=== PATIENT | female | born 1975 | race Caucasian/White ===

== ENCOUNTER → 2017-02-06 | Outpatient (CLI) | payer OTHER ==
--- NOTE | 2017-02-06 14:33 | REPMRS ---
Patient History The patient states she had a clinical breast exam in 01/15 Baseline Mammogram No known family history of cancer. Taking hormonal contraceptives for 7 years. Digital Woman Screen Mammo: February 06, 2017 - Exam #: [id number] Bilateral CC and MLO view(s) were taken. Technologist: Vinita Solis, Technologist FINDINGS: There are scattered fibroglandular densities. There is no evidence of cancer on this mammogram. ASSESSMENT: BI-RADS/ACR category 2 mammogram. Benign finding(s). Recommendation Routine screening mammogram of both breasts in 1 year (for women over age 40). This mammogram was interpreted with the aid of an FDA-approved computer-aided dectection system. Electronically Signed By: Gareth Carranza MD 02/06/17 [id number]
== END ==
LOC: M WHC 13:14
PROVIDERS: ATTEND Nurse Practitioner
DX: Z12.31 Encounter for screening mammogram for malignant neoplasm of breast (principal)

== ENCOUNTER → 2018-02-11 | Outpatient (CLI) | payer OTHER, MEDICAID ==
[2018-02-11 08:00] LABS: HEMATOCRIT 44.6 % (36.0-47.0); HEMOGLOBIN 15.3 g/dl (12.0-15.5); MEAN CORPUSCULAR HEMOGLOBIN 31.4 pg (27.0-33.0); MEAN CORPUSCULAR HGB CONC 34.3 g/dl (32.0-36.5); MEAN CORPUSCULAR VOLUME 91.4 fl (80.0-96.0); PLATELET COUNT, AUTOMATED 171 10^3/uL (150-450); RED BLOOD COUNT 4.88 10^6/uL (4.00-5.40); WHITE BLOOD COUNT 8.1 10^3/uL (4.0-10.0)
[2018-02-11 08:29] LABS: ALBUMIN 3.5 GM/DL (3.2-5.2); ALBUMIN/GLOBULIN RATIO 0.97 (1.00-1.93); ALKALINE PHOSPHATASE 88 U/L (45-117); ALT/SGPT 29 U/L (12-78); ANION GAP 7 MEQ/L (8-16); AST/SGOT 19 U/L (7-37); BILIRUBIN,TOTAL 0.3 MG/DL (0.2-1.0); BLOOD UREA NITROGEN 20 MG/DL (7-18); CARBON DIOXIDE LEVEL 24 MEQ/L (21-32); CHLORIDE LEVEL 114 MEQ/L (98-107); CHOLESTEROL LEVEL 142 MG/DL (<200); CHOLESTEROL RISK RATIO 3.736 (<5); CREATININE FOR GFR 0.98 MG/DL (0.55-1.30); GLOMERULAR FILTRATION RATE > 60.0 (>58); GLUCOSE, FASTING 110 MG/DL (70-100); HDL CHOLESTEROL 38 MG/DL (>40); LDL CHOLESTEROL 78.4 MG/DL (<100); NON-HDL-C 104 MG/DL; POTASSIUM SERUM 3.5 MEQ/L (3.5-5.1); SODIUM LEVEL 145 MEQ/L (136-145); TOTAL PROTEIN 7.1 GM/DL (6.4-8.2); TRIGLYCERIDES LEVEL 128 MG/DL (<150)
[2018-02-11 09:23] LABS: ESTIMATED AVERAGE GLUCOSE 114 MG/DL (60-110); HEMOGLOBIN A1c 5.6 %
[2018-02-11 09:25] LABS: TOTAL 25(OH) VITAMIN D 35.7 NG/ML (30.0-100.0)
== END ==
LOC: M LAB 07:06
DX: Z00.00 Encounter for general adult medical examination without abnormal findings (principal); E55.9 Vitamin D deficiency, unspecified; D68.59 Other primary thrombophilia
CPT/HCPCS: 80053

== ENCOUNTER 2019-03-22 16:58 | Emergency (ER) | payer BC, OTHER ==
[~2019-03-22] VITALS: Ht 160 cm; Wt 71.8 kg
[2019-03-22] MEDS ORDERED: VITA500045 OR (17:20)
[2019-03-22] MEDS ORDERED: TOPI200T7 OR (17:20)
[2019-03-22] MEDS ORDERED: LISI20TA3 OR (17:20)
[2019-03-22] MEDS ORDERED: HYDR200T3 OR (17:20)
[2019-03-22] MEDS ORDERED: WARF-22 OR (17:20)
[2019-03-22] MEDS ORDERED: WARF-21 OR (17:20)
[2019-03-22 17:40] LABS: BASO # 0.1 10^3/uL (0.0-0.2); BASO % 0.5 % (0.0-1.0); EOS # 0.3 10^3/uL (0.0-0.50); EOS % 1.9 % (0.0-3.0); HEMATOCRIT 44.2 % (36.0-47.0); HEMOGLOBIN 14.6 g/dl (12.0-15.5); LYMPH # 1.6 10^3/uL (1.5-4.5); MEAN CORPUSCULAR HEMOGLOBIN 31.3 pg (27.0-33.0); MEAN CORPUSCULAR VOLUME 94.8 fl (80.0-96.0); MONO # 0.7 10^3/uL (0.0-0.8); NEUTROPHILS # 10.8 10^3/uL (1.8-7.7); NEUTROPHILS % 80.3 % (36.0-66.0); PLATELET COUNT, AUTOMATED 157 10^3/uL (150-450); RED BLOOD COUNT 4.66 10^6/uL (4.00-5.40); WHITE BLOOD COUNT 13.4 10^3/uL (4.0-10.0)
[2019-03-22 18:09] LABS: ALBUMIN 3.2 GM/DL (3.2-5.2); ALT/SGPT 23 U/L (12-78); BILIRUBIN,DIRECT < 0.1 MG/DL (0.0-0.2); BILIRUBIN,TOTAL 0.2 MG/DL (0.2-1.0); BLOOD UREA NITROGEN 20 MG/DL (7-18); C REACTIVE PROTEIN QUANTITATIV 2.31 MG/DL (0.00-0.30); CALCIUM LEVEL 8.2 MG/DL (8.5-10.1); CARBON DIOXIDE LEVEL 20 MEQ/L (21-32); CHLORIDE LEVEL 113 MEQ/L (98-107); CREATININE FOR GFR 1.06 MG/DL (0.55-1.30); GLUCOSE, FASTING 98 MG/DL (70-100); POTASSIUM SERUM 3.3 MEQ/L (3.5-5.1); SODIUM LEVEL 143 MEQ/L (136-145); TOTAL PROTEIN 6.7 GM/DL (6.4-8.2)
[2019-03-22] MEDS ORDERED: DOXY100C PO (18:43)
[2019-03-22 18:55] VITALS: BP 109/64
== END 2019-03-22 18:59 | disposition home or self-care (01) ==
LOC: M ED 16:58
DX: L02.31 Cutaneous abscess of buttock (principal); L03.317 Cellulitis of buttock; I10 Essential (primary) hypertension; M32.9 Systemic lupus erythematosus, unspecified; D68.59 Other primary thrombophilia; Z91.030 Bee allergy status; Z79.899 Other long term (current) drug therapy; Z79.3 Long term (current) use of hormonal contraceptives; Z79.82 Long term (current) use of aspirin; Z79.01 Long term (current) use of anticoagulants; F17.210 Nicotine dependence, cigarettes, uncomplicated

== ENCOUNTER → 2019-03-25 | Outpatient (REF) | payer BC ==
[~2019-03-25] MED LIST: DOXY100C PO; HYDR200T3 OR; LISI20TA3 OR; TOPI200T7 OR; VITA500045 OR; WARF-21 OR; WARF-22 OR
[2019-03-25 12:28] LABS: BASO # 0.1 10^3/uL (0.0-0.2); BASO % 0.8 % (0.0-1.0); EOS # 0.2 10^3/uL (0.0-0.50); EOS % 3.3 % (0.0-3.0); HEMATOCRIT 43.8 % (36.0-47.0); HEMOGLOBIN 14.8 g/dl (12.0-15.5); LYMPH # 1.5 10^3/uL (1.5-4.5); LYMPH % 23.1 % (24.0-44.0); MEAN CORPUSCULAR HEMOGLOBIN 31.8 pg (27.0-33.0); MEAN CORPUSCULAR HGB CONC 33.8 g/dl (32.0-36.5); MONO # 0.4 10^3/uL (0.0-0.8); MONO % 5.6 % (0.0-5.0); NEUTROPHILS # 4.4 10^3/uL (1.8-7.7); NEUTROPHILS % 66.7 % (36.0-66.0); PLATELET COUNT, AUTOMATED 179 10^3/uL (150-450); RED BLOOD COUNT 4.66 10^6/uL (4.00-5.40); WHITE BLOOD COUNT 6.6 10^3/uL (4.0-10.0)
[2019-03-25 12:49] LABS: ALBUMIN 3.5 GM/DL (3.2-5.2); ALT/SGPT 23 U/L (12-78); BILIRUBIN,TOTAL 0.3 MG/DL (0.2-1.0); BLOOD UREA NITROGEN 14 MG/DL (7-18); C REACTIVE PROTEIN QUANTITATIV 2.29 MG/DL (0.00-0.30); CALCIUM LEVEL 8.9 MG/DL (8.5-10.1); CARBON DIOXIDE LEVEL 24 MEQ/L (21-32); CHLORIDE LEVEL 115 MEQ/L (98-107); GLOMERULAR FILTRATION RATE > 60.0 (>58); GLUCOSE, FASTING 98 MG/DL (70-100); POTASSIUM SERUM 3.6 MEQ/L (3.5-5.1); SODIUM LEVEL 143 MEQ/L (136-145); TOTAL PROTEIN 7.1 GM/DL (6.4-8.2)
[2019-03-25 12:55] LABS: ERYTHROCYTE SEDIMENTATION RATE 27 mm/hr (0-20)
== END ==
LOC: M SFHCPLAZ 09:51
PROVIDERS: ATTEND Physician Assistant Medical
DX: L02.91 Cutaneous abscess, unspecified (principal); E87.6 Hypokalemia

== ENCOUNTER → 2019-05-13 | Outpatient (CLI) | payer BC ==
[~2019-05-13] MED LIST changes: +LISI20TA20 OR; -LISI20TA3 OR
--- NOTE | 2019-05-14 08:00 | REPMRS ---
Patient History The patient states she had a clinical breast exam in 03/2019. No known family history of cancer. Taking hormonal contraceptives for 9 years 2 months. Digital Woman Screen Mammo: May 13, 2019 - Exam #: [id number] Bilateral CC and MLO view(s) were taken. Technologist: Joelle Galvan, Technologist Prior study comparison: March 18, 2018, bilateral digital woman screen mammo performed at [facility]. February 06, 2017, digital woman screen mammo performed at [facility]. FINDINGS: There are scattered fibroglandular densities. There has been no change in the appearance of the mammogram from the prior studies. There is a mild amount of scattered fibroglandular density which is fairly symmetric. There is no interval development of dominant mass, architectural distortion, or grouped microcalcification suggestive of malignancy. 3-D tomosynthesis shows no additional findings. Assessment: BI-RADS/ACR category 1 mammogram. Negative Mammogram. Recommendation Routine screening mammogram of both breasts in 1 year (for women over age 40). This patient's Lifetime Breast Cancer Risk is estimated at 10.5 %. This mammogram was interpreted with the aid of an FDA-approved computer-aided dectection system. Electronically Signed By: Tl Rayo MD 05/14/19 [id number]
== END ==
LOC: M WHC 14:14
PROVIDERS: ATTEND Nurse Practitioner
DX: Z12.31 Encounter for screening mammogram for malignant neoplasm of breast (principal); Z92.0 Personal history of contraception

== ENCOUNTER → 2020-02-11 | Outpatient (CLI) | payer SELFPAY ==
[2020-02-11 13:14] LABS: BASO % 0.5 % (0.0-1.0); EOS # 0.2 10^3/uL (0.0-0.5); EOS % 1.9 % (0.0-3.0); HEMATOCRIT 41.2 % (36.0-47.0); HEMOGLOBIN 14.3 g/dl (12.0-15.5); LYMPH # 3.4 10^3/uL (1.5-5.0); LYMPH % 39.3 % (24.0-44.0); MEAN CORPUSCULAR HEMOGLOBIN 32.4 pg (27.0-33.0); MEAN CORPUSCULAR HGB CONC 34.7 g/dl (32.0-36.5); MEAN CORPUSCULAR VOLUME 93.4 fl (80.0-96.0); MONO # 0.4 10^3/uL (0.0-0.8); MONO % 4.8 % (0.0-5.0); NEUTROPHILS # 4.6 10^3/uL (1.5-8.5); NEUTROPHILS % 53.2 % (36.0-66.0); PLATELET COUNT, AUTOMATED 177 10^3/uL (150-450); RED BLOOD COUNT 4.41 10^6/uL (4.00-5.40); WHITE BLOOD COUNT 8.6 10^3/uL (4.0-10.0)
[2020-02-11 13:42] LABS: ALBUMIN 3.9 GM/DL (3.2-5.2); ALT/SGPT 34 U/L (12-78); BILIRUBIN,TOTAL 0.5 MG/DL (0.2-1.0); BLOOD UREA NITROGEN 18 MG/DL (7-18); C REACTIVE PROTEIN QUANTITATIV < 0.30 MG/DL (0.00-0.30); CALCIUM LEVEL 8.9 MG/DL (8.5-10.1); CARBON DIOXIDE LEVEL 22 MEQ/L (21-32); CHLORIDE LEVEL 112 MEQ/L (98-107); CREATININE FOR GFR 0.96 MG/DL (0.55-1.30); GLOMERULAR FILTRATION RATE > 60.0 (>58); GLUCOSE, FASTING 93 MG/DL (70-100); SODIUM LEVEL 142 MEQ/L (136-145); TOTAL PROTEIN 6.8 GM/DL (6.4-8.2)
[2020-02-11 14:05] LABS: ERYTHROCYTE SEDIMENTATION RATE 7 mm/hr (0-20)
== END ==
LOC: M PLALAB 12:06
PROVIDERS: ATTEND Internal Medicine Rheumatology
DX: M32.19 Other organ or system involvement in systemic lupus erythematosus (principal)

== ENCOUNTER → 2020-02-11 | Outpatient (REF) | payer OTHER, SELFPAY ==
[2020-02-11 13:53] LABS: INR 1.68; PROTHROMBIN TIME 19.5 SECONDS (11.8-14.0)
== END ==
LOC: M SFHCPLAZ 12:04
PROVIDERS: ATTEND Internal Medicine
DX: Z51.81 Encounter for therapeutic drug level monitoring (principal); Z79.899 Other long term (current) drug therapy

== ENCOUNTER → 2020-02-25 | Outpatient (REF) | payer OTHER, SELFPAY ==
[2020-02-25 15:40] LABS: INR 1.56; PROTHROMBIN TIME 18.4 SECONDS (11.8-14.0)
== END ==
LOC: M PLALAB 13:27
PROVIDERS: ATTEND Internal Medicine
DX: Z51.81 Encounter for therapeutic drug level monitoring (principal)

== ENCOUNTER → 2020-03-02 | Outpatient (REF) | payer OTHER, SELFPAY ==
[2020-03-02 14:55] LABS: INR 2.37; PROTHROMBIN TIME 25.7 SECONDS (11.8-14.0)
== END ==
LOC: M PLALAB 13:38
PROVIDERS: ATTEND Internal Medicine
DX: Z51.81 Encounter for therapeutic drug level monitoring (principal)

== ENCOUNTER → 2020-03-16 | Outpatient (REF) | payer OTHER, SELFPAY ==
[2020-03-16 14:58] LABS: INR 2.31; PROTHROMBIN TIME 25.2 SECONDS (11.8-14.0)
== END ==
LOC: M PLALAB 13:27
PROVIDERS: ATTEND Internal Medicine
DX: Z51.81 Encounter for therapeutic drug level monitoring (principal)

== ENCOUNTER → 2020-03-30 | Outpatient (CLI) | payer SELFPAY ==
[2020-03-30 16:04] LABS: INR 3.2; PROTHROMBIN TIME 32.7 SECONDS (11.8-14.0)
== END ==
LOC: M PLALAB 13:47
PROVIDERS: ATTEND Internal Medicine
DX: Z51.81 Encounter for therapeutic drug level monitoring (principal); Z79.899 Other long term (current) drug therapy

== ENCOUNTER → 2020-06-10 | Outpatient (CLI) | payer SELFPAY ==
[2020-06-10 17:14] LABS: INR 2.5; PROTHROMBIN TIME 27.5 SECONDS (11.8-14.0)
== END ==
LOC: M PLALAB 14:26
PROVIDERS: ATTEND Nurse Practitioner Adult Health
DX: D68.59 Other primary thrombophilia (principal); Z79.01 Long term (current) use of anticoagulants

== ENCOUNTER → 2020-06-30 | Outpatient (CLI) | payer SELFPAY ==
--- NOTE | 2020-06-30 15:43 | REPMRS ---
Patient History The patient states she had a clinical breast exam in 03/2020. No known family history of cancer. Taking hormonal contraceptives for 10 years 2 months. 3D TOMOSYNTHESIS WAS PERFORMED. [facility] lifetime [facility] for breast cancer is 10.4%. TILA Carrillo. Digital Woman Screen Mammo: June 30, 2020 - Exam #: [id number] Bilateral CC and MLO view(s) were taken. Technologist: Joelle Galvan, Technologist Prior study comparison: May 13, 2019, bilateral digital woman screen mammo performed at [facility]. March 18, 2018, bilateral digital woman screen mammo performed at [facility]. FINDINGS: There are scattered fibroglandular densities. There has been no change in the appearance of the mammogram from the prior studies. There is a mild amount of residual fibroglandular tissue which is fairly symmetric. There is no interval development of dominant mass, architectural distortion, or clustered microcalcification suggestive of malignancy. Assessment: BI-RADS/ACR category 1 mammogram. Negative Mammogram. Recommendation Routine screening mammogram in 1 year (for women over age 40). This mammogram was interpreted with the aid of an FDA-approved computer-aided dectection system. Electronically Signed By: Gareth Carranza MD 06/30/20 [id number]
== END ==
LOC: M WHC 14:52
PROVIDERS: ATTEND Nurse Practitioner
DX: Z12.31 Encounter for screening mammogram for malignant neoplasm of breast (principal); Z79.3 Long term (current) use of hormonal contraceptives

== ENCOUNTER → 2020-07-02 | Outpatient (REF) | payer SELFPAY ==
[2020-07-02 17:58] LABS: APPEARANCE, URINE CLOUDY (CLEAR); BACTERIA, URINE AUTO NEGATIVE (NEGATIVE); BILIRUBIN, URINE AUTO NEGATIVE (NEGATIVE); BLOOD, URINE BLOOD 1+ (NEGATIVE); COLOR, URINE YELLOW (YELLOW); GLUCOSE, URINE (UA) AUTO NEGATIVE (NEGATIVE); KETONE, URINE AUTO TRACE mg/dL (NEGATIVE); LEUKOCYTE ESTERASE, URINE AUTO 2+ (NEGATIVE); MUCUS, URINE SMALL (NEGATIVE); NITRITE, URINE AUTO NEGATIVE (NEGATIVE); PROTEIN, URINE AUTO 2+ mg/dL (NEGATIVE); RBC, URINE AUTO 106 /HPF (0-3); SPECIFIC GRAVITY URINE AUTO 1.027 (1.002-1.035); SQUAMOUS EPITHELIAL CELL UR AU 2 /HPF (0-6); UROBILINOGEN, URINE AUTO 0.2 mg/dL (0.0-2.0); WBC, URINE AUTO 97 /HPF (0-3)
== END ==
LOC: M LAB REF 17:06
PROVIDERS: ATTEND Physician Assistant
DX: N39.0 Urinary tract infection, site not specified (principal)

== ENCOUNTER → 2020-07-26 | Outpatient (REF) | payer OTHER, SELFPAY ==
[2020-07-26 17:59] LABS: INR 2.91; PROTHROMBIN TIME 31.1 SECONDS (12.5-14.3)
== END ==
LOC: M SFHCPLAZ 14:29
PROVIDERS: ATTEND Nurse Practitioner Adult Health
DX: Z79.01 Long term (current) use of anticoagulants (principal); Z51.81 Encounter for therapeutic drug level monitoring

== ENCOUNTER → 2020-09-06 | Outpatient (REF) | payer OTHER ==
[2020-09-06 18:29] LABS: INR 2.61; PROTHROMBIN TIME 28.5 SECONDS (12.5-14.3)
== END ==
LOC: M SFHCPLAZ 15:05
PROVIDERS: ATTEND Nurse Practitioner Adult Health
DX: Z79.01 Long term (current) use of anticoagulants (principal); Z51.81 Encounter for therapeutic drug level monitoring

== ENCOUNTER → 2020-10-11 | Outpatient (REF) | payer OTHER ==
[2020-10-11 15:31] LABS: INR 2.47; PROTHROMBIN TIME 27.3 SECONDS (12.5-14.3)
== END ==
LOC: M PLALAB 12:42
PROVIDERS: ATTEND Nurse Practitioner Adult Health
DX: D68.59 Other primary thrombophilia (principal); Z79.01 Long term (current) use of anticoagulants

== ENCOUNTER → 2020-11-01 | Outpatient (REF) | payer OTHER ==
[2020-11-01 12:27] LABS: HEMATOCRIT 45.7 % (36.0-47.0); HEMOGLOBIN 15.5 g/dl (12.0-15.5); MEAN CORPUSCULAR HEMOGLOBIN 31.9 pg (27.0-33.0); MEAN CORPUSCULAR HGB CONC 33.9 g/dl (32.0-36.5); PLATELET COUNT, AUTOMATED 180 10^3/uL (150-450); RED BLOOD COUNT 4.86 10^6/uL (4.00-5.40); WHITE BLOOD COUNT 8.1 10^3/uL (4.0-10.0)
[2020-11-01 12:59] LABS: ERYTHROCYTE SEDIMENTATION RATE 6 mm/hr (0-20)
[2020-11-01 13:12] LABS: ALBUMIN 3.8 GM/DL (3.2-5.2); ALT/SGPT 28 U/L (12-78); BILIRUBIN,TOTAL 0.2 MG/DL (0.2-1.0); BLOOD UREA NITROGEN 18 MG/DL (7-18); C REACTIVE PROTEIN QUANTITATIV 0.38 MG/DL (0.00-0.30); CARBON DIOXIDE LEVEL 24 MEQ/L (21-32); CHLORIDE LEVEL 109 MEQ/L (98-107); CREATININE FOR GFR 1.14 MG/DL (0.55-1.30); GLOMERULAR FILTRATION RATE 54.9 (>58); GLUCOSE, FASTING 96 MG/DL (70-100); POTASSIUM SERUM 3.4 MEQ/L (3.5-5.1); RHEUMATOID FACTOR QUANT < 10.0 IU/ML (<15.0); SODIUM LEVEL 142 MEQ/L (136-145); TOTAL PROTEIN 6.9 GM/DL (6.4-8.2)
[2020-11-01 13:45] LABS: TOTAL 25(OH) VITAMIN D 65.2 NG/ML (30.0-100.0)
[2020-11-01 18:10] LABS: HEMOGLOBIN A1c 5.1 %
[2020-11-04 01:07] LABS: ANTINUCLEAR ANTIBODIES DIRECT Negative (Negative); CYCLIC CITRULLINATED PEPTIDE 18 units (0-19)
== END ==
LOC: M SFHCPLAZ 09:14
PROVIDERS: ATTEND Nurse Practitioner Adult Health
DX: M32.9 Systemic lupus erythematosus, unspecified (principal); D68.59 Other primary thrombophilia; I10 Essential (primary) hypertension; Z00.00 Encounter for general adult medical examination without abnormal findings; Z83.3 Family history of diabetes mellitus; E55.9 Vitamin D deficiency, unspecified

== ENCOUNTER → 2020-12-13 | Outpatient (REF) | payer OTHER ==
[2020-12-13 15:23] LABS: INR 2.38; PROTHROMBIN TIME 26.5 SECONDS (12.5-14.3)
== END ==
LOC: M PLALAB 13:32
PROVIDERS: ATTEND Nurse Practitioner Adult Health
DX: D68.59 Other primary thrombophilia (principal); Z79.01 Long term (current) use of anticoagulants

== ENCOUNTER → 2021-01-06 | Outpatient (REF) | payer OTHER, SELFPAY ==
[2021-01-06 15:53] LABS: INR 2.16; PROTHROMBIN TIME 24.6 SECONDS (12.5-14.3)
== END ==
LOC: M PLALAB 14:00
PROVIDERS: ATTEND Nurse Practitioner Adult Health
DX: D68.59 Other primary thrombophilia (principal); Z79.01 Long term (current) use of anticoagulants

== ENCOUNTER → 2021-02-07 | Outpatient (REF) | payer OTHER, SELFPAY ==
[2021-02-07 15:36] LABS: INR 2.36; PROTHROMBIN TIME 26.3 SECONDS (12.5-14.3)
== END ==
LOC: M PLALAB 14:17
PROVIDERS: ATTEND Nurse Practitioner Adult Health
DX: D68.59 Other primary thrombophilia (principal); Z79.01 Long term (current) use of anticoagulants

== ENCOUNTER → 2021-03-07 | Outpatient (REF) | payer OTHER ==
[2021-03-07 15:36] LABS: INR 2.75; PROTHROMBIN TIME 29.7 SECONDS (12.5-14.3)
== END ==
LOC: M PLALAB 13:53
PROVIDERS: ATTEND Nurse Practitioner Adult Health
DX: D68.59 Other primary thrombophilia (principal); Z79.01 Long term (current) use of anticoagulants

== ENCOUNTER → 2021-04-05 | Outpatient (CLI) | payer SELFPAY ==
[2021-04-05 15:55] LABS: INR 2.4; PROTHROMBIN TIME 26.7 SECONDS (12.5-14.3)
== END ==
LOC: M PLALAB 13:57
PROVIDERS: ATTEND Nurse Practitioner Adult Health
DX: D68.59 Other primary thrombophilia (principal); Z79.01 Long term (current) use of anticoagulants

== ENCOUNTER → 2021-05-09 | Outpatient (CLI) | payer SELFPAY ==
[~2021-05-09] MED LIST changes: -DOXY100C PO; +DOXY100C3 PO; -LISI20TA20 OR; +LISI20TA37 OR
[2021-05-09 15:54] LABS: INR 1.29; PROTHROMBIN TIME 16.5 SECONDS (12.7-14.5)
== END ==
LOC: M PLALAB 13:41
PROVIDERS: ATTEND Nurse Practitioner Adult Health
DX: D68.59 Other primary thrombophilia (principal); Z79.01 Long term (current) use of anticoagulants

== ENCOUNTER → 2021-06-07 | Outpatient (REF) | payer SELFPAY ==
[~2021-06-07] MED LIST changes: +LISI20TA20 OR; -LISI20TA37 OR
== END ==
LOC: M SFHCPLAZ 17:22
PROVIDERS: ATTEND Nurse Practitioner Adult Health
DX: R35.0 Frequency of micturition (principal)

== ENCOUNTER 2021-07-12 09:59 | Emergency (ER) | payer SELFPAY ==
--- NOTE | 2021-07-12 12:09 | REP ---
INDICATION: vaginal bleeding, on depo shot COMPARISON: None. TECHNIQUE: Transabdominal pelvic ultrasound with color Doppler evaluation of the ovaries. FINDINGS: Bladder is unremarkable and measures 5.2 x 7.3 x 3.2 cm. Normal anteverted uterus measures 6.1 x 3.1 x 4.3 cm. The endometrial complex measures 4 mm thickness. No discrete uterine or endometrial abnormalities are appreciated. Bilateral ovaries are normal in appearance and vascularity without evidence for torsion. Right ovary measures 2.7 x 2.1 x 2.3 cm; R I = 0.49. Left ovary measures 2.7 x 1.8 x 1.4 cm; R I = 0.49. No pelvic fluid or adnexal mass lesion IMPRESSION: Normal pelvic ultrasound. <Electronically signed by Jessee Del Rio > 07/12/21 [id number]
[2021-07-12 12:54] LABS: BASO # 0.1 10^3/uL (0.0-0.2); BASO % 0.6 % (0.0-1.0); EOS # 0.2 10^3/uL (0.0-0.5); EOS % 1.7 % (0.0-3.0); HEMATOCRIT 46.1 % (36.0-47.0); HEMOGLOBIN 15.4 g/dl (12.0-15.5); LYMPH # 2.5 10^3/uL (1.5-5.0); LYMPH % 28.5 % (24.0-44.0); MEAN CORPUSCULAR HGB CONC 33.4 g/dl (32.0-36.5); MEAN CORPUSCULAR VOLUME 95.6 fl (80.0-96.0); MONO # 0.4 10^3/uL (0.0-0.8); NEUTROPHILS # 5.5 10^3/uL (1.5-8.5); NEUTROPHILS % 63.9 % (36.0-66.0); PLATELET COUNT, AUTOMATED 146 10^3/uL (150-450); RED BLOOD COUNT 4.82 10^6/uL (4.00-5.40); WHITE BLOOD COUNT 8.6 10^3/uL (4.0-10.0)
[2021-07-12 13:04] LABS: INR 2.52; PROTHROMBIN TIME 27.6 SECONDS (12.7-14.5)
[2021-07-12 13:05] LABS: PARTIAL THROMBOPLASTIN TIME 49.6 SECONDS (25.9-37.0)
[2021-07-12 13:35] LABS: ALBUMIN 3.3 GM/DL (3.2-5.2); ALT/SGPT 60 U/L (12-78); BILIRUBIN,DIRECT < 0.1 MG/DL (0.0-0.2); BILIRUBIN,TOTAL 0.4 MG/DL (0.2-1.0); BLOOD UREA NITROGEN 18 MG/DL (7-18); CALCIUM LEVEL 8.7 MG/DL (8.5-10.1); CARBON DIOXIDE LEVEL 26 MEQ/L (21-32); CHLORIDE LEVEL 113 MEQ/L (98-107); CREATININE FOR GFR 0.98 MG/DL (0.55-1.30); GLOMERULAR FILTRATION RATE > 60.0 (>58); GLUCOSE, FASTING 75 MG/DL (70-100); LIPASE 106 U/L (73-393); POTASSIUM SERUM 3.6 MEQ/L (3.5-5.1); SODIUM LEVEL 143 MEQ/L (136-145); TOTAL PROTEIN 6.8 GM/DL (6.4-8.2)
[2021-07-12 14:05] LABS: HCG, SERUM QUALITATIVE NEGATIVE (NEGATIVE)
--- NOTE | 2021-07-12 14:55 | CR.PDOC ---
General Date of Consultation: Jul 12, 2021 Consultation REASON FOR CONSULTATION/CHIEF COMPLAINT: vaginal bleeding. HISTORY OF PRESENT ILLNESS: Pt is a 46yo premenopausal woman on therapeutic anti-coagulation with coumadin 2/2 history of Factor V leiden, lupus, and anti- phospholipid syndrome who presents to the ER with irregular bleeding. Pt states that she has had spotting for several weeks but the bleeding became heavier over the last few days. Changing a pad 4x per day. Not saturating through pads. She is on depo provera and is unsure but believes she's due for her next injection in August. In the ER, patient is refusing a pelvic exam. ALLERGIES: Please see below. HOME MEDICATIONS: Please see below. LABORATORY DATA: Please see below. ASSESSMENT/PLAN: 1. Irregular bleeding - normal with anticoagulation therapy and progestin only BC methods - hemodynamically stable - refusing pelvic exam - no immediate intervention needed at this time - recommend follow up with primary [facility] provider to discuss bleeding profile Vital Signs/I&O Vital Signs Date Time Temp Pulse Resp B/P (MAP) Pulse Ox O2 Delivery O2 Flow Rate FiO2 07/12/21 14:33 61 102/67 (79) 78 116/68 (84) 76 111/68 (82) 07/12/21 10:00 98.4 16 98 Room Air Laboratory Data Labs 24H Laboratory Tests 2 07/12/21 12:27: Immature Granulocyte % (Auto) 0.3, Neutrophils (%) (Auto) 63.9, Lymphocytes (%) (Auto) 28.5, Monocytes (%) (Auto) 5.0, Eosinophils (%) (Auto) 1.7, Basophils (%) (Auto) 0.6, Neutrophils # (Auto) 5.5, Lymphocytes # (Auto) 2.5, Monocytes # (Auto) 0.4, Eosinophils # (Auto) 0.2, Basophils # (Auto) 0.1, Nucleated Red Blood Cells % (auto) 0.0, Prothrombin Time 27.6H, Prothromb Time International Ratio 2.52, Activated Partial Thromboplast Time 49.6H, Anion Gap 4L, Glomerular Filtration Rate > 60.0, Calcium Level 8.7, Total Bilirubin 0.4, Direct Bilirubin < 0.1, Aspartate Amino Transf (AST/SGOT) 40H, Alanine Aminotransferase (ALT/SGPT) 60, Alkaline Phosphatase 60, Total Protein 6.8, Albumin 3.3, Albumin/Globulin Ratio 0.9L, Lipase 106, Human Chorionic Gonadotropin, Qual NEGATIVE CBC/BMP Laboratory Tests 07/12/21 12:27 Allergies Coded Allergies: bee venom protein (honey bee) (Verified Allergy, Severe, SWELLING, 03/22/19) Home Medications Scheduled Doxycycline Hyclate (Doxycycline Hyclate) 100 Mg Capsule, 1 CAP PO BID for 10 Days, #20 Ergocalciferol (Vitamin D2) (Vitamin D2) 50,000 Unit Capsule, 50,000 UNITS OR Q2WK, (Reported) Hydroxychloroquine Sulfate (Hydroxychloroquine Sulfate) 200 Mg Tablet, 200 MG OR BID, (Reported) Lisinopril/Hydrochlorothiazide (Lisinopril-Hctz 20-25 mg Tab) 1 Each Tablet, 20- 25 MG OR DAILY, (Reported) Topiramate (Topiramate) 200 Mg Tablet, 200 MG OR BID, (Reported) Warfarin Sodium (Warfarin Sodium) 7.5 Mg Tablet, 7.5 MG OR DAILY, (Reported) Warfarin Sodium (Warfarin Sodium) 10 Mg Tablet, 10 MG OR DAILY, (Reported) GUILLE WHITLOCK MD Jul 12, 2021 14:55
[2021-07-12 15:25] VITALS: BP 119/81
== END 2021-07-12 15:26 | disposition home or self-care (01) ==
LOC: M ED 09:59
DX: N93.8 Other specified abnormal uterine and vaginal bleeding (principal); I10 Essential (primary) hypertension; R56.9 Unspecified convulsions; M32.9 Systemic lupus erythematosus, unspecified; D68.4 Acquired coagulation factor deficiency; F17.200 Nicotine dependence, unspecified, uncomplicated; Z91.030 Bee allergy status; Z79.01 Long term (current) use of anticoagulants; Z79.899 Other long term (current) drug therapy

== ENCOUNTER → 2021-07-18 | Outpatient (CLI) | payer SELFPAY ==
[2021-07-18 17:59] LABS: INR 2.82
== END ==
LOC: M PLALAB 15:12
PROVIDERS: ATTEND Nurse Practitioner Adult Health
DX: Z51.81 Encounter for therapeutic drug level monitoring (principal)

== ENCOUNTER → 2021-07-24 | Outpatient (REF) | payer SELFPAY ==
[2021-07-24 20:15] LABS: APPEARANCE, URINE CLOUDY (CLEAR); BACTERIA, URINE AUTO 1+ (NEGATIVE); BILIRUBIN, URINE AUTO NEGATIVE (NEGATIVE); BLOOD, URINE BLOOD 1+ (NEGATIVE); COLOR, URINE YELLOW (YELLOW); GLUCOSE, URINE (UA) AUTO NEGATIVE (NEGATIVE); KETONE, URINE AUTO NEGATIVE (NEGATIVE); LEUKOCYTE ESTERASE, URINE AUTO 1+ (NEGATIVE); NITRITE, URINE AUTO NEGATIVE (NEGATIVE); PROTEIN, URINE AUTO 1+ mg/dL (NEGATIVE); RBC, URINE AUTO 87 /HPF (0-3); SPECIFIC GRAVITY URINE AUTO 1.014 (1.002-1.035); SQUAMOUS EPITHELIAL CELL UR AU 4 /HPF (0-6); TRANSITIONAL EPITHELIAL AUTO 1 /HPF; UROBILINOGEN, URINE AUTO 0.2 mg/dL (0.0-2.0); WBC, URINE AUTO 52 /HPF (0-3)
== END ==
LOC: M LAB REF 19:51
PROVIDERS: ATTEND Physician Assistant Medical
DX: R30.0 Dysuria (principal)

== ENCOUNTER → 2021-08-22 | Outpatient (CLI) | payer SELFPAY ==
[2021-08-22 15:59] LABS: INR 2.39; PROTHROMBIN TIME 26.5 SECONDS (12.7-14.5)
== END ==
LOC: M PLALAB 12:52
PROVIDERS: ATTEND Nurse Practitioner Adult Health
DX: Z51.81 Encounter for therapeutic drug level monitoring (principal); Z79.899 Other long term (current) drug therapy

== ENCOUNTER → 2021-09-06 | Outpatient (CLI) | payer SELFPAY ==
--- NOTE | 2021-09-06 16:15 | REP ---
INDICATION: SCREENING MAMMO. COMPARISON: Multiple prior screening examinations, the most recent, 06/30/2020 TECHNIQUE: Digital screening (2D) mammography was performed bilaterally in the CC and MLO projections. Additionally, breast tomosynthesis (3D mammography) was performed bilaterally in the CC and MLO projections. FINDINGS: By history, the patient has no complaints of a palpable breast abnormality or other significant breast complaints. The Volpara volumetric breast density pattern is b, there are scattered areas of fibroglandular density. In the anterior 3rd of the right breast, directly deep to and lateral to the nipple, at the 9 o'clock position, approximately 3 cm deep to the nipple, there is an isodense focal asymmetry, measuring 5 mm in diameter. IMPRESSION: BIRADS/ACR : 0: Incomplete, need additional imaging evaluation. This patient's Tyrer-Cuzick lifetime breast cancer risk assessment score is 10.3%. This mammogram was interpreted with the aid of an FDA-approved computer-aided detection system. The patient states she had a clinical breast exam in May 2021. The patient letter being requested is M0. RECOMMENDATION: 2D and 3D spot compression images of the right breast in the CC and MLO orientations, and right breast ultrasound. <Electronically signed by Julián Benito > 09/06/21 1134
== END ==
LOC: M WHC 15:11
DX: R92.2 Inconclusive mammogram (principal)

== ENCOUNTER → 2021-10-05 | Outpatient (CLI) | payer SELFPAY ==
[2021-10-05 14:09] LABS: INR 3.46; PROTHROMBIN TIME 35.1 SECONDS (12.7-14.5)
== END ==
LOC: M PLALAB 09:20
PROVIDERS: ATTEND Nurse Practitioner Adult Health
DX: Z51.81 Encounter for therapeutic drug level monitoring (principal)

== ENCOUNTER → 2021-11-01 | Outpatient (CLI) | payer SELFPAY ==
[~2021-11-01] MED LIST changes: -LISI20TA20 OR; +LISI20TA37 OR
[2021-11-01 17:28] LABS: INR 2.23; PROTHROMBIN TIME 25.1 SECONDS (12.7-14.5)
== END ==
LOC: M PLALAB 14:44
PROVIDERS: ATTEND Nurse Practitioner Adult Health
DX: Z51.81 Encounter for therapeutic drug level monitoring (principal); Z79.01 Long term (current) use of anticoagulants

== ENCOUNTER → 2021-12-01 | Outpatient (CLI) | payer BC | LOC: M WHC 14:51 | DX: R92.8 Other abnormal and inconclusive findings on diagnostic imaging of breast (principal) ==

== ENCOUNTER → 2021-12-12 | Outpatient (CLI) | payer BC ==
[2021-12-12 15:35] LABS: BASO # 0.1 10^3/uL (0.0-0.2); BASO % 0.7 % (0.0-1.0); EOS # 0.3 10^3/uL (0.0-0.5); EOS % 3.3 % (0.0-3.0); HEMATOCRIT 43.4 % (36.0-47.0); HEMOGLOBIN 14.7 g/dl (12.0-15.5); LYMPH # 3.4 10^3/uL (1.5-5.0); LYMPH % 33.7 % (24.0-44.0); MEAN CORPUSCULAR HEMOGLOBIN 31.7 pg (27.0-33.0); MEAN CORPUSCULAR HGB CONC 33.9 g/dl (32.0-36.5); MEAN CORPUSCULAR VOLUME 93.5 fl (80.0-96.0); MONO # 0.6 10^3/uL (0.0-0.8); MONO % 5.9 % (2.0-8.0); NEUTROPHILS # 5.6 10^3/uL (1.5-8.5); NEUTROPHILS % 56.1 % (36.0-66.0); PLATELET COUNT, AUTOMATED 207 10^3/uL (150-450); RED BLOOD COUNT 4.64 10^6/uL (4.00-5.40)
[2021-12-12 15:47] LABS: INR 2.49; PROTHROMBIN TIME 27.3 SECONDS (12.7-14.5)
[2021-12-12 16:04] LABS: ALT/SGPT 24 U/L (12-78); BILIRUBIN,TOTAL 0.3 MG/DL (0.2-1.0); BLOOD UREA NITROGEN 24 MG/DL (7-18); CALCIUM LEVEL 8.7 MG/DL (8.5-10.1); CARBON DIOXIDE LEVEL 25 MEQ/L (21-32); CHLORIDE LEVEL 112 MEQ/L (98-107); CREATININE FOR GFR 1.04 MG/DL (0.55-1.30); GLOMERULAR FILTRATION RATE > 60.0 (>58); GLUCOSE, FASTING 82 MG/DL (70-100); POTASSIUM SERUM 3.5 MEQ/L (3.5-5.1); SODIUM LEVEL 143 MEQ/L (136-145)
[2021-12-12 16:10] LABS: TOTAL 25(OH) VITAMIN D 77.7 NG/ML (30.0-100.0)
[2021-12-12 16:12] LABS: ERYTHROCYTE SEDIMENTATION RATE 5 mm/hr (0-20)
== END ==
LOC: M PLALAB 13:23
PROVIDERS: ATTEND Nurse Practitioner Adult Health
DX: Z00.00 Encounter for general adult medical examination without abnormal findings (principal); E55.9 Vitamin D deficiency, unspecified; M32.9 Systemic lupus erythematosus, unspecified; Z79.01 Long term (current) use of anticoagulants; D68.59 Other primary thrombophilia

== ENCOUNTER → 2022-01-23 | Outpatient (CLI) | payer BC ==
[2022-01-23 13:34] LABS: INR 2.92; PROTHROMBIN TIME 30.8 SECONDS (12.7-14.5)
== END ==
LOC: M PLALAB 11:30
PROVIDERS: ATTEND Nurse Practitioner Adult Health
DX: D68.59 Other primary thrombophilia (principal)

== ENCOUNTER → 2022-03-14 | Outpatient (CLI) | payer BC ==
[2022-03-14 16:07] LABS: INR 2.53; PROTHROMBIN TIME 27.6 SECONDS (12.7-14.5)
== END ==
LOC: M PLALAB 13:44
PROVIDERS: ATTEND Nurse Practitioner Adult Health
DX: D68.59 Other primary thrombophilia (principal)

== ENCOUNTER → 2022-04-24 | Outpatient (CLI) | payer BC ==
[2022-04-24 16:44] LABS: INR 2.55; PROTHROMBIN TIME 27.8 SECONDS (12.7-14.5)
== END ==
LOC: M PLALAB 14:08
PROVIDERS: ATTEND Nurse Practitioner Adult Health
DX: D68.59 Other primary thrombophilia (principal)

== ENCOUNTER → 2022-06-06 | Outpatient (CLI) | payer BC ==
[2022-06-06 15:56] LABS: INR 2.74; PROTHROMBIN TIME 29.4 SECONDS (12.7-14.5)
== END ==
LOC: M PLALAB 12:42
PROVIDERS: ATTEND Nurse Practitioner Adult Health
DX: D68.59 Other primary thrombophilia (principal)

== ENCOUNTER → 2022-07-17 | Outpatient (CLI) | payer BC ==
[2022-07-17 13:43] LABS: INR 2.43; PROTHROMBIN TIME 26.8 SECONDS (12.5-14.5)
== END ==
LOC: M PLALAB 10:20
PROVIDERS: ATTEND Nurse Practitioner Adult Health
DX: D68.59 Other primary thrombophilia (principal)

== ENCOUNTER → 2022-08-28 | Outpatient (CLI) | payer BC ==
[2022-08-28 17:24] LABS: INR 2.44; PROTHROMBIN TIME 26.9 SECONDS (12.5-14.5)
== END ==
LOC: M PLALAB 15:01
PROVIDERS: ATTEND Nurse Practitioner Adult Health
DX: D68.59 Other primary thrombophilia (principal); Z79.01 Long term (current) use of anticoagulants

== ENCOUNTER → 2022-09-07 | Outpatient (CLI) | payer BC | LOC: M WHC 16:31 | PROVIDERS: ATTEND Nurse Practitioner Women's Health | DX: Z12.31 Encounter for screening mammogram for malignant neoplasm of breast (principal) ==

== ENCOUNTER → 2022-10-09 | Outpatient (CLI) | payer BC ==
[2022-10-09 17:15] LABS: INR 2.77; PROTHROMBIN TIME 29.7 SECONDS (12.5-14.5)
== END ==
LOC: M PLALAB 15:26
PROVIDERS: ATTEND Nurse Practitioner Adult Health
DX: D68.59 Other primary thrombophilia (principal); Z79.01 Long term (current) use of anticoagulants

== ENCOUNTER → 2022-12-08 | Outpatient (CLI) | payer BC ==
[2022-12-08 08:18] LABS: BASO # 0.1 10^3/uL (0.0-0.2); BASO % 0.7 % (0.0-1.0); EOS # 0.4 10^3/uL (0.0-0.5); EOS % 4.4 % (0.0-3.0); HEMATOCRIT 42.8 % (36.0-47.0); HEMOGLOBIN 14.3 g/dl (12.0-15.5); LYMPH # 2.3 10^3/uL (1.5-5.0); LYMPH % 26.2 % (24.0-44.0); MEAN CORPUSCULAR HEMOGLOBIN 31.7 pg (27.0-33.0); MEAN CORPUSCULAR HGB CONC 33.4 g/dl (32.0-36.5); MEAN CORPUSCULAR VOLUME 94.9 fl (80.0-96.0); MONO # 0.4 10^3/uL (0.0-0.8); MONO % 4.8 % (2.0-8.0); NEUTROPHILS # 5.5 10^3/uL (1.5-8.5); NEUTROPHILS % 63.4 % (36.0-66.0); PLATELET COUNT, AUTOMATED 173 10^3/uL (150-450); RED BLOOD COUNT 4.51 10^6/uL (4.00-5.40); WHITE BLOOD COUNT 8.6 10^3/uL (4.0-10.0)
[2022-12-08 08:33] LABS: ERYTHROCYTE SEDIMENTATION RATE 14 mm/hr (0-20)
[2022-12-08 09:25] LABS: RHEUMATOID FACTOR QUANT < 3.5 IU/ML (<14)
[2022-12-08 09:30] LABS: ALBUMIN 3.4 G/DL (3.2-5.2); ALKALINE PHOSPHATASE 75 U/L (46-116); ALT/SGPT 22 U/L (7.0-40); AST/SGOT 21 U/L (<34); BILIRUBIN,TOTAL 0.3 MG/DL (0.3-1.2); BLOOD UREA NITROGEN 22 MG/DL (9-23); CALCIUM LEVEL 8.9 MG/DL (8.5-10.1); CARBON DIOXIDE LEVEL 22 MMOL/L (20-31); CHLORIDE LEVEL 112 MMOL/L (98-107); CHOLESTEROL LEVEL 128 MG/DL (<200); CHOLESTEROL RISK RATIO 3.05 (<5); CREATININE FOR GFR 1.03 MG/DL (0.55-1.30); GLOMERULAR FILTRATION RATE > 60.0 (>58); GLUCOSE, FASTING 93 MG/DL (60-100); HDL CHOLESTEROL 41.9 MG/DL (>40); LDL CHOLESTEROL 71.1 MG/DL (<100); NON-HDL-C 86.1 MG/DL; POTASSIUM SERUM 3.6 MMOL/L (3.5-5.1); SODIUM LEVEL 142 MMOL/L (136-145); THYROID STIMULATING HORMONE 0.953 uIU/ML (0.55-4.78); TOTAL 25(OH) VITAMIN D 85.8 NG/ML (20.0-100.0); TOTAL PROTEIN 6.2 G/DL (5.7-8.2); TRIGLYCERIDES LEVEL 75 MG/DL (<150)
[2022-12-08 10:04] LABS: HEMOGLOBIN A1c 5.1 % (4.0-6.0)
[2022-12-09 21:07] LABS: ANTI DOUBLE STRAND-DNA AB 1 IU/mL (0-9); ANTINUCLEAR ANTIBODIES DIRECT Positive (Negative); CYCLIC CITRULLINATED PEPTIDE 3 units (0-19); RNP ANTIBODIES 1.2 AI (0.0-0.9); SJOGREN'S ANTI SS-A <0.2 AI (0.0-0.9); SJOGREN'S ANTI SS-B <0.2 AI (0.0-0.9); SMITH ANTIBODIES <0.2 AI (0.0-0.9)
== END ==
LOC: M LAB 06:53
PROVIDERS: ATTEND Nurse Practitioner Adult Health
DX: Z00.00 Encounter for general adult medical examination without abnormal findings (principal); M32.9 Systemic lupus erythematosus, unspecified; E55.9 Vitamin D deficiency, unspecified; Z83.3 Family history of diabetes mellitus

== ENCOUNTER → 2022-12-25 | Outpatient (CLI) | payer BC ==
[2022-12-25 12:56] LABS: INR 2.76; PROTHROMBIN TIME 29.6 SECONDS (12.5-14.5)
== END ==
LOC: M PLALAB 08:25
PROVIDERS: ATTEND Nurse Practitioner Adult Health
DX: D68.59 Other primary thrombophilia (principal); Z79.01 Long term (current) use of anticoagulants

== ENCOUNTER → 2023-01-03 | Outpatient (REF) | payer BC ==
[2023-01-03 22:45] LABS: APPEARANCE, URINE HAZY (CLEAR); BACTERIA, URINE AUTO 1+ (NEGATIVE); BILIRUBIN, URINE AUTO NEGATIVE (NEGATIVE); BLOOD, URINE BLOOD 3+ (NEGATIVE); COLOR, URINE YELLOW (YELLOW); GLUCOSE, URINE (UA) AUTO NEGATIVE (NEGATIVE); KETONE, URINE AUTO NEGATIVE (NEGATIVE); LEUKOCYTE ESTERASE, URINE AUTO 2+ (NEGATIVE); NITRITE, URINE AUTO NEGATIVE (NEGATIVE); PROTEIN, URINE AUTO 2+ mg/dL (NEGATIVE); RBC, URINE AUTO TNTC /HPF (0-3); SPECIFIC GRAVITY URINE AUTO 1.006 (1.002-1.035); SQUAMOUS EPITHELIAL CELL UR AU 1 /HPF (0-6); UROBILINOGEN, URINE AUTO 0.2 mg/dL (0.0-2.0); WBC, URINE AUTO 34 /HPF (0-3)
== END ==
LOC: M LAB REF 22:06
PROVIDERS: ATTEND Physician Assistant
DX: N39.0 Urinary tract infection, site not specified (principal)

== ENCOUNTER 2023-02-02 17:08 | Emergency (ER) | payer BC ==
[~2023-02-02] VITALS: Ht 160 cm; Wt 78.6 kg
[2023-02-02 18:28] LABS: BASO # 0.1 10^3/uL (0.0-0.2); BASO % 0.8 % (0.0-1.0); EOS # 0.2 10^3/uL (0.0-0.5); EOS % 1.8 % (0.0-3.0); HEMATOCRIT 43.1 % (36.0-47.0); HEMOGLOBIN 14.1 g/dl (12.0-15.5); LYMPH # 2.3 10^3/uL (1.5-5.0); MEAN CORPUSCULAR HEMOGLOBIN 31.8 pg (27.0-33.0); MEAN CORPUSCULAR HGB CONC 32.7 g/dl (32.0-36.5); MEAN CORPUSCULAR VOLUME 97.3 fl (80.0-96.0); MONO # 0.5 10^3/uL (0.0-0.8); MONO % 5.7 % (2.0-8.0); NEUTROPHILS # 5.8 10^3/uL (1.5-8.5); NEUTROPHILS % 65.5 % (36.0-66.0); PLATELET COUNT, AUTOMATED 171 10^3/uL (150-450); RED BLOOD COUNT 4.43 10^6/uL (4.00-5.40); WHITE BLOOD COUNT 8.8 10^3/uL (4.0-10.0)
[2023-02-02 18:46] LABS: LIPASE 28 U/L (12-53)
[2023-02-02 18:48] LABS: ALBUMIN 3.8 G/DL (3.2-5.2); ALKALINE PHOSPHATASE 53 U/L (46-116); ALT/SGPT 17 U/L (7.0-40); AST/SGOT 18 U/L (<34); BILIRUBIN,DIRECT 0.1 MG/DL (<0.4); BILIRUBIN,TOTAL 0.3 MG/DL (0.3-1.2); BLOOD UREA NITROGEN 12 MG/DL (9-23); CALCIUM LEVEL 8.6 MG/DL (8.5-10.1); CARBON DIOXIDE LEVEL 23 MMOL/L (20-31); CHLORIDE LEVEL 112 MMOL/L (98-107); CREATININE FOR GFR 1.04 MG/DL (0.55-1.30); GLOMERULAR FILTRATION RATE > 60.0 (>58); GLUCOSE, FASTING 111 MG/DL (60-100); POTASSIUM SERUM 3.6 MMOL/L (3.5-5.1); SODIUM LEVEL 141 MMOL/L (136-145); TOTAL PROTEIN 6.6 G/DL (5.7-8.2)
[2023-02-02] MEDS ORDERED: METOCLOPRAMIDE INJ 10MG/2ML VIAL IV ONE (19:30)
[2023-02-02] MEDS ORDERED: ACETAMINOPHEN 1000MG 100ML IV BAG IV ONE (19:30)
[2023-02-02] MEDS ORDERED: NS 1,000 ML IV ONE (19:30)
[2023-02-02] MEDS ORDERED: CEFUROXIME 500 MG TAB PO ONE (20:25)
[2023-02-02] MEDS ORDERED: TAMSULOSIN 0.4 MG CAP PO ONE (20:25)
[2023-02-02] MEDS ORDERED: HYDR-3713 PO (20:34)
[2023-02-02] MEDS ORDERED: REGL10TA6 PO (20:34)
[2023-02-02] MEDS ORDERED: CEFU50TA PO (20:34)
[2023-02-02] MEDS ORDERED: FLOM0.4C39 PO (20:34)
[2023-02-02 20:42] VITALS: BP 102/68
== END 2023-02-02 20:50 | disposition home or self-care (01) ==
LOC: M ED 17:08
DX: N20.0 Calculus of kidney (principal); R56.9 Unspecified convulsions; F17.200 Nicotine dependence, unspecified, uncomplicated; Z91.030 Bee allergy status; Z79.01 Long term (current) use of anticoagulants; Z79.899 Other long term (current) drug therapy
CPT/HCPCS: 74176; 80048; 80076; 81001; 83690; 85025; 87088; 87186; 96374; 96375; 99284; J0131; J2765

== ENCOUNTER → 2023-02-15 | Outpatient (REF) | payer BC ==
[~2023-02-15] MED LIST changes: +CEFU50TA PO; +FLOM0.4C39 PO; +HYDR-3713 PO; +REGL10TA6 PO
== END ==
LOC: M SFHCPLAZ 13:11
PROVIDERS: ATTEND Nurse Practitioner Adult Health
DX: Z53.9 Procedure and treatment not carried out, unspecified reason (principal)

== ENCOUNTER → 2023-02-22 | Outpatient (CLI) | payer BC ==
[2023-02-22 17:28] LABS: INR 2.99; PROTHROMBIN TIME 31.5 SECONDS (12.5-14.5)
== END ==
LOC: M PLALAB 14:47
PROVIDERS: ATTEND Nurse Practitioner Adult Health
DX: D68.59 Other primary thrombophilia (principal); Z79.01 Long term (current) use of anticoagulants

== ENCOUNTER → 2023-04-16 | Outpatient (CLI) | payer BC ==
[~2023-04-16] MED LIST changes: -HYDR200T3 OR; +HYDR200T46 OR
[2023-04-16 13:56] LABS: INR 3.22; PROTHROMBIN TIME 33.4 SECONDS (12.5-14.5)
== END ==
LOC: M PLALAB 10:39
PROVIDERS: ATTEND Nurse Practitioner Adult Health
DX: Z51.81 Encounter for therapeutic drug level monitoring (principal)

== ENCOUNTER → 2023-05-28 | Outpatient (CLI) | payer BC ==
[2023-05-28 17:25] LABS: INR 3.04; PROTHROMBIN TIME 30.8 SECONDS (12.5-14.5)
== END ==
LOC: M PLALAB 15:33
PROVIDERS: ATTEND Nurse Practitioner Adult Health
DX: Z79.01 Long term (current) use of anticoagulants (principal)

== ENCOUNTER → 2023-07-09 | Outpatient (CLI) | payer BC ==
[2023-07-09 17:21] LABS: INR 3.56; PROTHROMBIN TIME 34.8 SECONDS (12.5-14.5)
== END ==
LOC: M PLALAB 14:54
PROVIDERS: ATTEND Nurse Practitioner Adult Health
DX: Z79.01 Long term (current) use of anticoagulants (principal)

== ENCOUNTER → 2023-08-21 | Outpatient (CLI) | payer BC ==
[2023-08-21 13:39] LABS: INR 3.34; PROTHROMBIN TIME 32.6 SECONDS (12.5-14.5)
== END ==
LOC: M PLALAB 10:07
PROVIDERS: ATTEND Nurse Practitioner Adult Health
DX: Z79.01 Long term (current) use of anticoagulants (principal)

== ENCOUNTER → 2023-11-05 | Outpatient (CLI) | payer BC ==
[2023-11-05 17:30] LABS: INR 2.79; PROTHROMBIN TIME 28.4 SECONDS (12.5-14.5)
== END ==
LOC: M PLALAB 16:04
PROVIDERS: ATTEND Nurse Practitioner Adult Health
DX: Z79.01 Long term (current) use of anticoagulants (principal)

== ENCOUNTER → 2023-12-07 | Outpatient (CLI) | payer BC | LOC: M WHC 15:55 | PROVIDERS: ATTEND Nurse Practitioner Women's Health | DX: Z12.31 Encounter for screening mammogram for malignant neoplasm of breast (principal); Z53.8 Procedure and treatment not carried out for other reasons ==

== ENCOUNTER → 2023-12-19 | Outpatient (CLI) | payer BC | LOC: M RAD 12:10 | PROVIDERS: ATTEND Nurse Practitioner Women's Health | DX: N93.8 Other specified abnormal uterine and vaginal bleeding (principal) ==

== ENCOUNTER → 2023-12-24 | Outpatient (CLI) | payer BC ==
[2023-12-24 17:29] LABS: INR 3.2; PROTHROMBIN TIME 31.6 SECONDS (12.5-14.5)
== END ==
LOC: M PLALAB 15:03
PROVIDERS: ATTEND Nurse Practitioner Adult Health
DX: Z79.01 Long term (current) use of anticoagulants (principal)

== ENCOUNTER → 2024-01-28 | Outpatient (CLI) | payer BC ==
[2024-01-28 12:04] LABS: INR 3.78; PROTHROMBIN TIME 35.9 SECONDS (12.5-14.5)
== END ==
LOC: M PLALAB 10:22
PROVIDERS: ATTEND Nurse Practitioner Adult Health
DX: Z79.01 Long term (current) use of anticoagulants (principal)

== ENCOUNTER → 2024-02-28 | Outpatient (REF) | payer BC ==
[2024-02-28 16:38] LABS: APPEARANCE, URINE CLEAR (CLEAR); BACTERIA, URINE AUTO 1+ (NEGATIVE); BILIRUBIN, URINE AUTO NEGATIVE (NEGATIVE); BLOOD, URINE BLOOD 2+ (NEGATIVE); COLOR, URINE STRAW (YELLOW); GLUCOSE, URINE (UA) AUTO NEGATIVE (NEGATIVE); KETONE, URINE AUTO NEGATIVE (NEGATIVE); LEUKOCYTE ESTERASE, URINE AUTO 1+ (NEGATIVE); NITRITE, URINE AUTO NEGATIVE (NEGATIVE); PROTEIN, URINE AUTO NEGATIVE (NEGATIVE); RBC, URINE AUTO 4 /HPF (0-3); SPECIFIC GRAVITY URINE AUTO 1.006 (1.002-1.035); SQUAMOUS EPITHELIAL CELL UR AU 2 /HPF (0-6); UROBILINOGEN, URINE AUTO 0.2 mg/dL (0.0-2.0); WBC, URINE AUTO 14 /HPF (0-3)
== END ==
LOC: M LAB REF 16:16
PROVIDERS: ATTEND Physician Assistant
DX: N39.0 Urinary tract infection, site not specified (principal)

== ENCOUNTER → 2024-03-03 | Outpatient (CLI) | payer BC ==
[2024-03-03 18:08] LABS: INR 3.18; PROTHROMBIN TIME 31.4 SECONDS (12.5-14.5)
== END ==
LOC: M PLALAB 14:41
PROVIDERS: ATTEND Nurse Practitioner Adult Health
DX: Z79.01 Long term (current) use of anticoagulants (principal)

== ENCOUNTER → 2024-03-11 | Outpatient (CLI) | payer BC ==
[2024-03-11 07:56] LABS: HEMATOCRIT 44.5 % (36.0-47.0); MEAN CORPUSCULAR HEMOGLOBIN 32.3 pg (27.0-33.0); MEAN CORPUSCULAR HGB CONC 33.7 g/dl (32.0-36.5); MEAN CORPUSCULAR VOLUME 95.9 fl (80.0-96.0); PLATELET COUNT, AUTOMATED 187 10^3/uL (150-450); RED BLOOD COUNT 4.64 10^6/uL (4.00-5.40); WHITE BLOOD COUNT 8.1 10^3/uL (4.0-10.0)
[2024-03-11 08:14] LABS: HEMOGLOBIN A1c 4.8 % (4.0-6.0)
[2024-03-11 08:16] LABS: ALBUMIN 3.8 G/DL (3.2-5.2); BILIRUBIN,TOTAL 0.4 MG/DL (0.3-1.2); CALCIUM LEVEL 9.6 MG/DL (8.5-10.1); CHOLESTEROL RISK RATIO 3.01 (<5); CREATININE FOR GFR 1.14 MG/DL (0.55-1.30); GLOMERULAR FILTRATION RATE 53.9 (>58); HDL CHOLESTEROL 46.7 MG/DL (>40); LDL CHOLESTEROL 81.3 MG/DL (<100); NON-HDL-C 94.3 MG/DL; POTASSIUM SERUM 3.6 MMOL/L (3.5-5.1); TOTAL PROTEIN 6.6 G/DL (5.7-8.2)
[2024-03-11 08:17] LABS: TOTAL 25(OH) VITAMIN D 57.1 NG/ML (20.0-100.0)
[2024-03-11 08:18] LABS: FERRITIN 228.1 NG/ML (7.3-270.7); THYROID STIMULATING HORMONE 1.527 uIU/ML (0.55-4.78)
== END ==
LOC: M LAB 07:01
PROVIDERS: ATTEND Nurse Practitioner Adult Health
DX: Z00.00 Encounter for general adult medical examination without abnormal findings (principal); D68.59 Other primary thrombophilia; I10 Essential (primary) hypertension; E55.9 Vitamin D deficiency, unspecified; Z83.3 Family history of diabetes mellitus; Z13.220 Encounter for screening for lipoid disorders

== ENCOUNTER → 2024-04-08 | Outpatient (CLI) | payer BC ==
[2024-04-08 17:53] LABS: INR 2.83; PROTHROMBIN TIME 28.8 SECONDS (12.5-14.5)
== END ==
LOC: M PLALAB 15:08
PROVIDERS: ATTEND Nurse Practitioner Adult Health
DX: Z79.01 Long term (current) use of anticoagulants (principal)

== ENCOUNTER → 2024-05-26 | Outpatient (CLI) | payer BC ==
[2024-05-26 12:58] LABS: INR 3.58; PROTHROMBIN TIME 34.4 SECONDS (12.5-14.5)
== END ==
LOC: M PLALAB 10:48
PROVIDERS: ATTEND Nurse Practitioner Adult Health
DX: Z79.01 Long term (current) use of anticoagulants (principal); M25.512 Pain in left shoulder

== ENCOUNTER → 2024-06-30 | Outpatient (CLI) | payer BC ==
[2024-06-30 17:33] LABS: INR 2.94; PROTHROMBIN TIME 29.6 SECONDS (12.5-14.5)
== END ==
LOC: M PLALAB 15:14
PROVIDERS: ATTEND Nurse Practitioner Adult Health
DX: Z79.01 Long term (current) use of anticoagulants (principal)

== ENCOUNTER → 2024-08-05 | Outpatient (CLI) | payer BC ==
[2024-08-05 17:25] LABS: INR 2.79; PROTHROMBIN TIME 29.4 SECONDS (12.5-14.5)
== END ==
LOC: M PLALAB 15:24
PROVIDERS: ATTEND Nurse Practitioner Adult Health
DX: Z79.01 Long term (current) use of anticoagulants (principal)

== ENCOUNTER → 2024-09-15 | Outpatient (CLI) | payer BC ==
[2024-09-15 17:10] LABS: INR 3.12
== END ==
LOC: M PLALAB 15:04
PROVIDERS: ATTEND Nurse Practitioner Adult Health
DX: Z51.81 Encounter for therapeutic drug level monitoring (principal); Z79.01 Long term (current) use of anticoagulants

== ENCOUNTER → 2024-10-31 | Outpatient (CLI) | payer BC ==
[2024-10-31 13:07] LABS: INR 3.86; PROTHROMBIN TIME 37.6 SECONDS (12.5-14.5)
== END ==
LOC: M PLALAB 11:22
PROVIDERS: ATTEND Nurse Practitioner Adult Health
DX: Z79.01 Long term (current) use of anticoagulants (principal)

== ENCOUNTER → 2024-12-11 | Outpatient (CLI) | payer BC ==
[2024-12-11 10:24] LABS: INR 3.51; PROTHROMBIN TIME 34.9 SECONDS (12.5-14.5)
== END ==
LOC: M PLALAB 08:00
PROVIDERS: ATTEND Nurse Practitioner Adult Health
DX: D68.59 Other primary thrombophilia (principal); Z79.01 Long term (current) use of anticoagulants

== ENCOUNTER → 2025-01-12 | Outpatient (CLI) | payer BC ==
[2025-01-12 13:13] LABS: INR 2.34; PROTHROMBIN TIME 25.7 SECONDS (12.5-14.5)
== END ==
LOC: M PLALAB 09:32
PROVIDERS: ATTEND Nurse Practitioner Adult Health
DX: D68.59 Other primary thrombophilia (principal); Z79.01 Long term (current) use of anticoagulants

== ENCOUNTER → 2025-02-16 | Outpatient (CLI) | payer BC ==
[~2025-02-16] MED LIST changes: -FLOM0.4C39 PO; +TAMS-18 PO; +TOPI-14 OR; -TOPI200T7 OR
[2025-02-16 15:07] LABS: INR 4.19
== END ==
LOC: M PLALAB 13:28
PROVIDERS: ATTEND Nurse Practitioner Adult Health
DX: D68.59 Other primary thrombophilia (principal); Z79.01 Long term (current) use of anticoagulants

== ENCOUNTER 2025-04-01 09:23 | Inpatient (IN) | payer BC ==
[~2025-04-01] VITALS: Ht 160 cm; Wt 58.8 kg
[~2025-04-01 09:23] MED LIST changes: -HYDR200T46 OR; +HYDR200T46 PO; -LISI20TA37 OR; +LISI20TA37 PO; -TOPI-14 OR; +TOPI-14 PO; -WARF-22 OR; +WARF-22 PO
[2025-04-01] MEDS ORDERED: VITA400C49 PO (09:40)
[2025-04-01 10:14] LABS: BASO # 0.0 10^3/uL (0.0-0.2); BASO % 0.4 % (0.0-1.0); EOS # 0.1 10^3/uL (0.0-0.5); EOS % 1.2 % (0.0-3.0); LYMPH # 1.8 10^3/uL (1.5-5.0); LYMPH % 26.3 % (24.0-44.0); MONO # 0.3 10^3/uL (0.0-0.8); MONO % 4.9 % (2.0-8.0); NEUTROPHILS # 4.5 10^3/uL (1.5-8.5); NEUTROPHILS % 66.8 % (36.0-66.0); PLATELET COUNT, AUTOMATED 161 10^3/uL (150-450)
[2025-04-01 10:33] LABS: INR 4.16
[2025-04-01] MEDS: NITROGLYCERIN 0.4MG SUBL TABLET SL STA (10:36)
[2025-04-01] MEDS: ASPIRIN 81 MG CHEWABLE TABLET PO ONE (10:36)
[2025-04-01 10:45] LABS: ALT/SGPT 22.0 U/L (7.0-40); AST/SGOT 23.0 U/L (<34); CALCIUM LEVEL 8.9 MG/DL (8.5-10.1); CARBON DIOXIDE LEVEL 21.0 MMOL/L (20-31); CHLORIDE LEVEL 109.0 MMOL/L (98-107); CREATININE FOR GFR 0.9 MG/DL (0.55-1.30); GLOMERULAR FILTRATION RATE 77.9 (>51); POTASSIUM SERUM 3.8 MMOL/L (3.5-5.1); SODIUM LEVEL 143.0 MMOL/L (136-145)
[2025-04-01 10:46] LABS: CPK CREATINE PHOSPHOKINASE 64.0 U/L (34-145)
[2025-04-01 11:06] LABS: CK-MB VALUE MASS 3.4 NG/ML (<3.6); MB/CK RELATIVE INDEX 5.31 (< OR =4)
[2025-04-01] MEDS ORDERED: ISOVUE-370 76% 100 ML VIAL As Ordered ONE (11:11)
[2025-04-01 11:47] LABS: CK-MB VALUE MASS 3.9 NG/ML (<3.6)
[2025-04-01 11:51] LABS: CPK CREATINE PHOSPHOKINASE 55.0 U/L (34-145); MB/CK RELATIVE INDEX 7.09 (< OR =4)
[2025-04-01] MEDS ORDERED: VITA500045 PO (12:45)
[2025-04-01] MEDS ORDERED: ASPI81TA26 PO (12:46)
[2025-04-01] MEDS ORDERED: DEPO150I12 IM (12:48)
[2025-04-01] MEDS ORDERED: CALC-190 PO (12:48)
[2025-04-01] MEDS ORDERED: VITA-158 PO (12:48)
[2025-04-01] MEDS ORDERED: HOME MED LIST COMPLETE! XX SCH (12:50)
[2025-04-01] MEDS ORDERED: NITROGLYCERIN 0.4MG SUBL TABLET SL PRN (15:20)
[2025-04-01] MEDS: ATORVASTATIN 20 MG TAB PO ONE (15:34)
[2025-04-01] MEDS: PANTOPRAZOLE 40MG TAB PO ONE (15:49)
[2025-04-01] MEDS: CLOPIDOGREL 300 MG TAB PO STA (15:49)
[2025-04-01] MEDS ORDERED: PILL CUTTER 1 EACH XX PRN (16:00)
[2025-04-01 16:30] LABS: INR 4.1
[2025-04-01] MEDS: HYDROXYCHLOROQUINE 200 MG TAB PO SCH (16:56)
[2025-04-01 17:21] VITALS: BP 112/69; TEMP 98.2; O2SAT 99
[2025-04-01 19:27] VITALS: BP 108/68; TEMP 98.2; O2SAT 96
[2025-04-01] MEDS: ASCORBIC ACID 500 MG TAB PO SCH (22:01)
[2025-04-01] MEDS: TOPIRAMATE 100 MG TAB PO SCH (22:02)
[2025-04-01 23:30] VITALS: BP 87/56; TEMP 98.2; O2SAT 98
[2025-04-02] MEDS: NS 500 ML IV ONE (00:55)
[2025-04-02 03:22] VITALS: BP 100/59; TEMP 98.3; O2SAT 95
[2025-04-02 07:01] LABS: PLATELET COUNT, AUTOMATED 177 10^3/uL (150-450)
[2025-04-02 07:20] LABS: INR 3.31
[2025-04-02 07:43] LABS: CALCIUM LEVEL 8.5 MG/DL (8.5-10.1); CARBON DIOXIDE LEVEL 20.0 MMOL/L (20-31); CHLORIDE LEVEL 109.0 MMOL/L (98-107); CHOLESTEROL LEVEL 133.0 MG/DL (<200); CHOLESTEROL RISK RATIO 2.66 (<5); CREATININE FOR GFR 0.9 MG/DL (0.55-1.30); GLOMERULAR FILTRATION RATE 77.9 (>51); LDL CHOLESTEROL 66.6 MG/DL (<100); NON-HDL-C 83.0 MG/DL; POTASSIUM SERUM 3.6 MMOL/L (3.5-5.1); SODIUM LEVEL 141.0 MMOL/L (136-145); TRIGLYCERIDES LEVEL 82.0 MG/DL (<150)
[2025-04-02 08:00] VITALS: BP 101/62; TEMP 99; O2SAT 98
[2025-04-02] MEDS: ASPIRIN 81 MG ENTERIC TABLET PO SCH (08:52)
[2025-04-02] MEDS: ATORVASTATIN 20 MG TAB PO SCH (08:52)
[2025-04-02 08:54] LABS: ESTIMATED AVERAGE GLUCOSE 100.0 MG/DL (60-110)
[2025-04-02] MEDS: CLOPIDOGREL 75 MG TAB PO SCH (08:55)
[2025-04-02] MEDS: PANTOPRAZOLE 40MG TAB PO SCH (08:55)
[2025-04-02 12:07] VITALS: BP 92/60; TEMP 98.7; O2SAT 99
[2025-04-02 15:59] VITALS: BP 108/65; TEMP 99.3; O2SAT 98
[2025-04-02 19:33] VITALS: BP 94/62; TEMP 97.4; O2SAT 98
[2025-04-02] MEDS: ALPRAZolam 0.5 MG TAB PO SCH (21:11)
[2025-04-02 23:37] VITALS: BP 88/58; TEMP 97; O2SAT 97
[2025-04-03 03:42] VITALS: BP 95/61; TEMP 97.5; O2SAT 98
[2025-04-03 07:03] LABS: BASO # 0.1 10^3/uL (0.0-0.2); BASO % 0.6 % (0.0-1.0); EOS # 0.2 10^3/uL (0.0-0.5); EOS % 2.6 % (0.0-3.0); LYMPH # 1.9 10^3/uL (1.5-5.0); LYMPH % 23.0 % (24.0-44.0); MONO # 0.5 10^3/uL (0.0-0.8); MONO % 6.2 % (2.0-8.0); NEUTROPHILS # 5.4 10^3/uL (1.5-8.5); NEUTROPHILS % 67.1 % (36.0-66.0); PLATELET COUNT, AUTOMATED 156 10^3/uL (150-450)
[2025-04-03 07:12] LABS: INR 1.71
[2025-04-03 07:40] LABS: CALCIUM LEVEL 8.1 MG/DL (8.5-10.1); CARBON DIOXIDE LEVEL 19.0 MMOL/L (20-31); CHLORIDE LEVEL 112.0 MMOL/L (98-107); CREATININE FOR GFR 0.91 MG/DL (0.55-1.30); GLOMERULAR FILTRATION RATE 76.9 (>51); POTASSIUM SERUM 3.9 MMOL/L (3.5-5.1); SODIUM LEVEL 143.0 MMOL/L (136-145)
[2025-04-03] MEDS ORDERED: HEPARIN SOD 5000 UNITS/ML 1 ML VIAL/SYRINGE IV PRN (07:40)
[2025-04-03 07:59] VITALS: BP 100/59; TEMP 97.3; O2SAT 98
[2025-04-03] MEDS ORDERED: ATOR1TAB21 PO (08:12)
[2025-04-03] MEDS ORDERED: HEPA1INJ78 IV (08:12)
[2025-04-03] MEDS ORDERED: CLOP75TA2 PO (08:12)
[2025-04-03] MEDS: HEPARIN SOD 5000 UNITS/ML 1 ML VIAL/SYRINGE IV ONE (08:55)
[2025-04-03] MEDS: HEPARIN DRIP 25,000 UNITS in IV 1 EA IV SCH (09:01)
== END 2025-04-03 10:47 | disposition short-term general hospital (02) | DRG 190 ==
LOC: M ED 09:23 → M ED INP 15:19 → M PCU 17:16
PROVIDERS: ADMIT Internal Medicine; ATTEND Internal Medicine
PROC: B246ZZZ Ultrasonography of Right and Left Heart (ICD-10-PCS; principal; 2025-04-01)
DX: I21.4 Non-ST elevation (NSTEMI) myocardial infarction (principal); D68.2 Hereditary deficiency of other clotting factors; I95.9 Hypotension, unspecified; M32.9 Systemic lupus erythematosus, unspecified; D68.61 Antiphospholipid syndrome; I51.81 Takotsubo syndrome; I10 Essential (primary) hypertension; Z86.711 Personal history of pulmonary embolism; G40.909 Epilepsy, unspecified, not intractable, without status epilepticus; F41.9 Anxiety disorder, unspecified; Z87.891 Personal history of nicotine dependence; Z79.82 Long term (current) use of aspirin; Z79.02 Long term (current) use of antithrombotics/antiplatelets; Z79.899 Other long term (current) drug therapy; Z91.030 Bee allergy status

== ENCOUNTER → 2025-05-05 | Outpatient (CLI) | payer BC ==
[~2025-05-05] MED LIST changes: +ASPI81TA26 PO; +ATOR1TAB21 PO; +CALC-190 PO; +CLOP75TA2 PO; +DEPO150I12 IM; +HEPA1INJ78 IV; +VITA-158 PO; +VITA400C49 PO; +VITA500045 PO
[2025-05-05 07:14] LABS: PLATELET COUNT, AUTOMATED 151 10^3/uL (150-450)
[2025-05-05 07:36] LABS: INR 4.75
[2025-05-05 08:06] LABS: ESTIMATED AVERAGE GLUCOSE 91.0 MG/DL (60-110)
[2025-05-05 08:07] LABS: ALT/SGPT 23.0 U/L (7.0-40); AST/SGOT 18.0 U/L (<34); CALCIUM LEVEL 8.4 MG/DL (8.5-10.1); CARBON DIOXIDE LEVEL 22.0 MMOL/L (20-31); CHLORIDE LEVEL 114.0 MMOL/L (98-107); CHOLESTEROL LEVEL 132.0 MG/DL (<200); CHOLESTEROL RISK RATIO 2.51 (<5); CREATININE FOR GFR 1.0 MG/DL (0.55-1.30); GLOMERULAR FILTRATION RATE 68.6 (>51); LDL CHOLESTEROL 69.7 MG/DL (<100); NON-HDL-C 79.5 MG/DL; POTASSIUM SERUM 3.8 MMOL/L (3.5-5.1); SODIUM LEVEL 148.0 MMOL/L (136-145); TRIGLYCERIDES LEVEL 49.0 MG/DL (<150)
[2025-05-05 08:09] LABS: LUTEINIZING HORMONE 2.1 mIU/ML
== END ==
LOC: M LAB 06:29
PROVIDERS: ATTEND Nurse Practitioner Adult Health
DX: D68.59 Other primary thrombophilia (principal); Z83.3 Family history of diabetes mellitus; Z86.73 Personal history of transient ischemic attack (TIA), and cerebral infarction without residual deficits; E55.9 Vitamin D deficiency, unspecified; E87.6 Hypokalemia; Z79.01 Long term (current) use of anticoagulants; N95.1 Menopausal and female climacteric states

== ENCOUNTER → 2025-05-05 | Outpatient (CLI) | payer BC ==
[2025-05-05 07:14] LABS: BASO # 0.0 10^3/uL (0.0-0.2); BASO % 0.7 % (0.0-1.0); EOS # 0.2 10^3/uL (0.0-0.5); EOS % 2.5 % (0.0-3.0); LYMPH # 1.2 10^3/uL (1.5-5.0); LYMPH % 19.8 % (24.0-44.0); MONO # 0.4 10^3/uL (0.0-0.8); MONO % 6.1 % (2.0-8.0); NEUTROPHILS # 4.2 10^3/uL (1.5-8.5); NEUTROPHILS % 70.4 % (36.0-66.0); PLATELET COUNT, AUTOMATED 155 10^3/uL (150-450)
[2025-05-05 07:48] LABS: ALT/SGPT 21.0 U/L (7.0-40); AST/SGOT 16.0 U/L (<34); CALCIUM LEVEL 8.9 MG/DL (8.5-10.1); CARBON DIOXIDE LEVEL 22.0 MMOL/L (20-31); CHLORIDE LEVEL 113.0 MMOL/L (98-107); CREATININE FOR GFR 0.99 MG/DL (0.55-1.30); GLOMERULAR FILTRATION RATE 69.5 (>51); POTASSIUM SERUM 3.8 MMOL/L (3.5-5.1); SODIUM LEVEL 147.0 MMOL/L (136-145)
[2025-05-05 08:07] LABS: ERYTHROCYTE SEDIMENTATION RATE 9 mm/hr (0-30)
== END ==
LOC: M LAB 06:36
PROVIDERS: ATTEND Internal Medicine Rheumatology
DX: M32.19 Other organ or system involvement in systemic lupus erythematosus (principal); Z79.899 Other long term (current) drug therapy

== ENCOUNTER 2025-05-27 07:00 | Emergency (ER) | payer BC, OTHER ==
[~2025-05-27] VITALS: Ht 160 cm; Wt 52.7 kg
[~2025-05-27 07:00] MED LIST changes: +ERGO125013 PO; -VITA500045 PO
[2025-05-27] MEDS ORDERED: WARF-22 (07:11)
[2025-05-27] MEDS ORDERED: BUSP10TA (07:11)
[2025-05-27 07:47] LABS: KETONE, URINE AUTO RFX NEGATIVE (NEGATIVE); NITRITE, URINE AUTO RFX NEGATIVE (NEGATIVE); RBC, URINE AUTO RFX TNTC /HPF (0-3); SQUAM EPITHELIAL CELL UR AURFX 0 /HPF (0-6)
[2025-05-27 07:57] LABS: LEUKOCYTE ESTERASE UR AUTO RFX 3+ (NEGATIVE); WBC, URINE AUTO RFX TNTC /HPF (0-3)
[2025-05-27 08:34] LABS: BASO # 0.1 10^3/uL (0.0-0.2); BASO % 0.7 % (0.0-1.0); EOS # 0.1 10^3/uL (0.0-0.5); EOS % 1.0 % (0.0-3.0); LYMPH # 1.6 10^3/uL (1.5-5.0); LYMPH % 17.7 % (24.0-44.0); MONO # 0.4 10^3/uL (0.0-0.8); MONO % 4.7 % (2.0-8.0); NEUTROPHILS # 6.9 10^3/uL (1.5-8.5); NEUTROPHILS % 75.6 % (36.0-66.0); PLATELET COUNT, AUTOMATED 162 10^3/uL (150-450)
[2025-05-27] MEDS: TETANUS/DIPHTH/ACEL. PERTUSSIS 0.5 ML SYR IM.IMMUN ONE (08:35)
[2025-05-27 09:02] LABS: ALT/SGPT 16.0 U/L (7.0-40); AST/SGOT 19.0 U/L (<34); CALCIUM LEVEL 9.0 MG/DL (8.5-10.1); CARBON DIOXIDE LEVEL 17.0 MMOL/L (20-31); CHLORIDE LEVEL 115.0 MMOL/L (98-107); CREATININE FOR GFR 0.94 MG/DL (0.55-1.30); GLOMERULAR FILTRATION RATE 73.9 (>51); POTASSIUM SERUM 3.6 MMOL/L (3.5-5.1); SODIUM LEVEL 145.0 MMOL/L (136-145)
[2025-05-27] MEDS ORDERED: TAMS-18 PO (09:47)
[2025-05-27] MEDS ORDERED: CEFD300C PO (09:47)
[2025-05-27 09:53] VITALS: BP 121/65; TEMP 97.9; O2SAT 100
== END 2025-05-27 10:04 | disposition home or self-care (01) ==
LOC: M ED 07:00
DX: N20.2 Calculus of kidney with calculus of ureter (principal); I25.2 Old myocardial infarction; Z87.440 Personal history of urinary (tract) infections; D68.51 Activated protein C resistance; Z79.01 Long term (current) use of anticoagulants; Z79.899 Other long term (current) drug therapy

== ENCOUNTER → 2025-05-29 | Outpatient (CLI) | payer OTHER ==
[~2025-05-29] MED LIST changes: +BUSP10TA; +CEFD300C PO; +WARF-22
[2025-05-29 07:37] LABS: INR 3.39
== END ==
LOC: M LAB 06:45
PROVIDERS: ATTEND Nurse Practitioner Adult Health
DX: D68.59 Other primary thrombophilia (principal); Z79.01 Long term (current) use of anticoagulants; E55.9 Vitamin D deficiency, unspecified

== ENCOUNTER → 2025-06-29 | Outpatient (CLI) | payer OTHER ==
[~2025-06-29] MED LIST changes: -BUSP10TA; +BUSP10TA PO; +CITA10TA7 PO; +TAMS1CAP17 PO; +VITA100T91 PO; -WARF-22
[2025-06-29 16:28] LABS: PLATELET COUNT, AUTOMATED 209 10^3/uL (150-450)
[2025-06-29 16:31] LABS: APPEARANCE, URINE CLEAR (CLEAR); BACTERIA, URINE AUTO 1+ (NEGATIVE); BILIRUBIN, URINE AUTO NEGATIVE (NEGATIVE); BLOOD, URINE BLOOD 2+ (NEGATIVE); GLUCOSE, URINE (UA) AUTO NEGATIVE (NEGATIVE); KETONE, URINE AUTO NEGATIVE (NEGATIVE); LEUKOCYTE ESTERASE, URINE AUTO 2+ (NEGATIVE); NITRITE, URINE AUTO NEGATIVE (NEGATIVE); PROTEIN, URINE AUTO NEGATIVE (NEGATIVE); RBC, URINE AUTO 2 /HPF (0-3); SPECIFIC GRAVITY URINE AUTO 1.003 (1.002-1.035); SQUAMOUS EPITHELIAL CELL UR AU 0 /HPF (0-6); UROBILINOGEN, URINE AUTO 0.2 mg/dL (0.0-2.0); WBC, URINE AUTO 8 /HPF (0-3)
[2025-06-29 16:41] LABS: INR 3.47
[2025-06-29 16:44] LABS: CALCIUM LEVEL 8.6 MG/DL (8.5-10.1); CARBON DIOXIDE LEVEL 22.0 MMOL/L (20-31); CHLORIDE LEVEL 107.0 MMOL/L (98-107); CREATININE FOR GFR 1.02 MG/DL (0.55-1.30); GLOMERULAR FILTRATION RATE 67.0 (>51); POTASSIUM SERUM 3.4 MMOL/L (3.5-5.1); SODIUM LEVEL 138.0 MMOL/L (136-145)
== END ==
LOC: M RAD 15:21
PROVIDERS: ATTEND Physician Assistant
DX: Z01.818 Encounter for other preprocedural examination (principal); N20.1 Calculus of ureter

== ENCOUNTER 2025-07-06 06:42 | Day surgery (SDC) | payer OTHER ==
[~2025-07-06] VITALS: Ht 160 cm; Wt 64.4 kg
[~2025-07-06 06:42] MED LIST changes: +ceFAZolin SOD 2 GM IV ONCE IV ONE
[2025-07-06] MEDS ORDERED: LIDOCAINE 2% 100 MG/5 ML SDV (FOR ANES.) As Ordered ONE (07:03)
[2025-07-06] MEDS ORDERED: ONDANSETRON 4MG 2ML VIAL As Ordered ONE (07:03)
[2025-07-06] MEDS ORDERED: dexAMETHasone 4 MG/ML 1 ML VIAL As Ordered ONE (07:03)
[2025-07-06] MEDS: LR 1,000 ML IV SCH (07:30)
[2025-07-06 07:40] LABS: INR 1.07
[2025-07-06] MEDS ORDERED: MIDAZOLAM INJ 2 MG/2 ML VIAL As Ordered ONE (07:46)
[2025-07-06] MEDS ORDERED: LOVE1INJ SC (07:54)
[2025-07-06] MEDS ORDERED: ISOVUE-300 61% 100 ML VIAL As Ordered ONE (08:18)
[2025-07-06] MEDS ORDERED: ACETAMINOPHEN 1000MG/100ML IV BAG As Ordered ONE (08:43)
[2025-07-06] MEDS ORDERED: LR 1,000 ML IV SCH (09:25)
[2025-07-06] MEDS ORDERED: ONDANSETRON 4MG 2ML VIAL IV PRN (09:25)
[2025-07-06] MEDS ORDERED: HYDROMORPHONE HCL 0.5 MG/0.5 ML SYRINGE IV PRN (09:25)
[2025-07-06] MEDS ORDERED: OXYC1TAB23 PO (09:51)
[2025-07-06] MEDS ORDERED: OXYB5TAB14 PO (09:51)
[2025-07-06 10:00] VITALS: TEMP 96.6
[2025-07-06 10:20] VITALS: BP 116/62; O2SAT 99
[2025-07-06] MEDS ORDERED: PERCOCET 5MG/325MG TAB PO PRN (11:00)
== END 2025-07-06 10:26 | disposition home or self-care (01) ==
LOC: M SDC 06:42
PROVIDERS: ATTEND Urology
DX: N20.2 Calculus of kidney with calculus of ureter (principal); R07.9 Chest pain, unspecified; Z91.030 Bee allergy status; Z79.899 Other long term (current) drug therapy; Z87.891 Personal history of nicotine dependence
CPT/HCPCS: 36415; 52356; 76000; 81025; 82365; 85610; C2617; J0131; J1100; J2250; J2405; J3010; Q9967

== ENCOUNTER → 2025-07-09 | Outpatient (CLI) | payer OTHER ==
[~2025-07-09] MED LIST changes: +LOVE1INJ SC; +OXYB5TAB14 PO; +OXYC1TAB23 PO; -ceFAZolin SOD 2 GM IV ONCE IV ONE
[2025-07-09 10:15] LABS: INR 1.23
== END ==
LOC: M PLALAB 08:12
PROVIDERS: ATTEND Student in an Organized Health Care Education/Training Program
DX: D68.61 Antiphospholipid syndrome (principal)

== ENCOUNTER → 2025-07-21 | Outpatient (CLI) | payer OTHER ==
[2025-07-21 10:23] LABS: INR 2.26
== END ==
LOC: M PLALAB 08:17
PROVIDERS: ATTEND Student in an Organized Health Care Education/Training Program
DX: Z79.01 Long term (current) use of anticoagulants (principal)

== ENCOUNTER → 2025-08-25 | Outpatient (CLI) | payer OTHER ==
[2025-08-25 11:08] LABS: INR 2.08
== END ==
LOC: M PLALAB 07:33
PROVIDERS: ATTEND Nurse Practitioner Adult Health
DX: Z79.01 Long term (current) use of anticoagulants (principal)

== ENCOUNTER → 2025-09-22 | Outpatient (CLI) | payer OTHER ==
[2025-09-22 15:18] LABS: INR 3.1
== END ==
LOC: M PLALAB 13:42
PROVIDERS: ATTEND Nurse Practitioner Adult Health
DX: Z79.01 Long term (current) use of anticoagulants (principal)